=== PATIENT | female | born 1955 | race African-American/Black ===

== ENCOUNTER 2016-11-09 09:49 | Inpatient (IN) ==
[2016-11-09] MEDS ORDERED: LABETALOL IV ONE (10:37)
[2016-11-09] MEDS ORDERED: ASPIRIN PO STA (10:37)
[2016-11-09 10:50] LABS: MANUAL DIFF NEEDED? NO
[2016-11-09 10:52] LABS: BASO% 0.4 % (0.0-0.8); EOS# 0.11 X1000 (0.0-0.7); EOS% 1.2 % (0.0-10.0); HEMATOCRIT 43.2 % (37.0-47.0); HEMOGLOBIN 14.2 g/dL (12.0-16.0); IMM GRAN# 0.02 X1000 (0.0-0.04); IMM GRAN% 0.2 % (0.0-0.5); LYMPH# 1.97 X1000 (1.2-3.4); LYMPH% 21.6 % (20.5-51.1); MCH 29.5 PG (27-31); MCHC 32.9 g/dL (33-37); MCV 89.8 FL (81-99); MONO# 0.61 X1000 (0.11-0.59); MONO% 6.7 % (1.7-9.3); MPV 10.1 FL (7.4-10.4); NEUT% 69.9 % (42.2-75.2); PLT 319 X1000 (130-400); RBC 4.81 XMIL (4.2-5.4)
--- NOTE | 2016-11-09 10:55 | Diag Imaging Result Doc PS360 ---
CHEST-PORTABLE - 11/09/2016 INDICATION: CP TECHNIQUE: COMPARISON: 07/24/2014 FINDINGS: There is probably pulmonary vascular congestion. There are some ill-defined, central and bibasilar interstitial infiltrates or areas of atelectasis. Heart size is top normal. No pneumothorax or large effusion. IMPRESSION: Nonspecific findings. Bibasilar infiltrates or atelectasis. Pulmonary edema is not excluded. Electronically signed by Los Tavera 11/09/2016 10:52 AM
[2016-11-09] MEDS ORDERED: MORPHINE IV ONE (11:06)
[2016-11-09] MEDS ORDERED: ZOFRAN IV ONE (11:06)
[2016-11-09 11:08] LABS: INR 0.99; PROTIME 10.4 Seconds (9.2-11.7)
[2016-11-09 11:10] LABS: AGAP 10; ALBUMIN 3.6 g/dL (3.5-5.0); ALKALINE PHOSPHATASE 99 U/L (32-104); BUN 8 mg/dL (8-22); CALCIUM 9.2 mg/dL (8.8-10.2); CHLORIDE 102 mmol/L (98-107); CK PROFILE 153 U/L (24-173); COSMO 276; GOT 13 U/L (10-30); GPT 10 U/L (10-36); MAGNESIUM 2.1 mg/dL (1.5-2.7); SODIUM 139 mmol/L (136-145); TCO2 27 mmol/L (25-35); TOTAL BILIRUBIN 0.28 mg/dL (0.20-1.00); TOTAL PROTEIN 8.1 g/dL (6.3-8.3)
[2016-11-09] MEDS ORDERED: APRESOLINE IV ONE (11:20)
[2016-11-09 11:26] LABS: URINE MICRO REVIEW NEEDED? NO; URINE SOURCE CLEAN CATCH
[2016-11-09 11:35] LABS: BILIRUBIN URINE NEGATIVE (NEGATIVE); BLOOD URINE NEGATIVE (NEGATIVE); COLOR STRAW; GLUCOSE URINE NEGATIVE (NEGATIVE); LEUKOCYTES URINE SMALL (NEGATIVE); NITRITE URINE NEGATIVE (NEGATIVE); PH URINE 5.5; PROTEIN URINE NEGATIVE (NEGATIVE); SP GRAVITY URINE 1.002; TURBIDITY URINE CLEAR (CLEAR); UROBILINOGEN URINE NORMAL (NORMAL)
[2016-11-09 11:36] LABS: UR EPITHELIAL CELLS <10 /HPF (<10); URINE BACTERIA NEGATIVE /HPF; URINE CULTURE NEEDED? YES; URINE RBC <10 /HPF (<10)
[2016-11-09] MEDS ORDERED: ROCEPHIN 1 GM/NS 1 GM/50 ML IVPB IV ONE (11:49)
--- NOTE | 2016-11-09 12:27 | Diag Imaging Result Doc PS360 ---
EXAM: ABD/PELVIS/PULM ARTERIES HISTORY: CP with IL=408/120 TECHNIQUE: CT of the chest with intravenous contrast, CT of the abdomen and pelvis with intravenous contrast with dose reduction. COMMENT: Somewhat increased interstitial markings are generally present but there is no evidence of focal mass or consolidation in the lung parenchyma. The study is somewhat suboptimal due to the patient's body habitus and beam hardening artifact. There are no definite filling defects in the pulmonary arteries. There is calcification in the coronary arteries. There are no abnormal fluid collections. The aorta is not distended and there is no evidence of dissection. The visualized skeleton is unremarkable. ABDOMEN: There is calcification throughout the aorta and iliac arteries. There is no evidence of aneurysm. The spleen and adrenal glands are not enlarged. The pancreas is unremarkable. There are no gallstones. The liver is unremarkable. There is a small hiatal hernia. Kidneys are without evidence of hydronephrosis or mass. There is a ventral hernia above the level of the umbilicus. Actually there are two defects both of which contain small bowel loops. No evidence of dilatation of the small bowel is present. There is gas and stool in the colon. There is no evidence of significant adenopathy or abnormal fluid collections. CT of the pelvis: There is been hysterectomy. The urinary bladder is unremarkable. There is no evidence of free fluid masses or significant adenopathy. There are areas of sclerosis and vacuum phenomenon in the sacroiliac joints and severe facet arthropathy is present at L4-5 and L3-4. IMPRESSION: Ventral hernias. No evidence of acute disease in the chest. Electronically signed by Aren Childress 11/09/2016 12:24 PM
--- NOTE | 2016-11-09 12:33 | EKG Report ---
Test Performed on : 11/09/2016 09:57:46 AM Test Reason : cp Blood Pressure : / mmHG Vent. Rate : 106 BPM Atrial Rate : 106 BPM P-R Int : 160 ms QRS Dur : 080 ms QT Int : 344 ms P-R-T Axes : 041 029 055 degrees QTc Int : [address] elevation, probably due to early repolarization Nonspecific ST and T wave abnormality Abnormal ECG When compared with ECG of 07-MAY-2009 12:41, No significant change was found Unconfirmed Result
[2016-11-09] MEDS ORDERED: G.I. COCKTAIL PO ONE (13:14)
--- NOTE | 2016-11-09 13:40 | PROVIDER DOCUMENTATION ---
This chart was entered by Abril Hall Scribe, acting as scribe for Curt Urban MD. HPI-Chest Pain - General Chief Complaint: Chest Pain Stated Complaint: CP Time Seen by Provider: 11/09/16 10:20 Source: patient, family Allergies/Adverse Reactions: Patient Allergies Allergy/AdvReac Type Severity Reaction Status Date / Time No Known Allergies Allergy Verified 11/09/16 10:45 - History of Present Illness-CP Nature of Presenting Problem: 61 yo F presents to the ER with complaint of sudden onset of substernal CP this morning, woke her up from sleep. Pt denies any sort of cardiac history. Describes the pain as substernal, had radiation to her L arm, jaw, and head. Now states the pain is intermittent. Had some SOB associated, denies n/v. Has not taken BP medication x1 year. Location: reports: substernal Chest Pain Radiation: reports: jaw, arms Onset/Duration: 4-6 hours ago Timing: intermittent Context/Activities at Onset: reports: sleep Associated Symptoms: reports: shortness of breath. denies: nausea, vomiting Nitro Today/Relief: no nitro taken today Prior Chest Pain/Cardiac Workup: reports: no prior chest pain, no prior cardiac workup, non-cardiac. denies: stress test Similar Symptoms Previously?: No Review of Systems - Adult - REVIEW OF SYSTEMS - ADULT Constitutional: denies: chills, fever Eyes: reports: no symptoms reported Ears, Nose, Mouth & Throat: reports: no symptoms reported Cardiovascular: reports: chest pain. denies: palpitations Respiratory: reports: shortness of breath. denies: cough Gastrointestinal: denies: abdominal pain, diarrhea, nausea, vomiting Genitourinary: reports: no symptoms reported Musculoskeletal: reports: no symptoms reported Integumentary: reports: no symptoms reported Neurological: reports: no symptoms reported Psychiatric: reports: no symptoms reported Endocrine: reports: no symptoms reported Hematologic/Lymphatic: reports: no symptoms reported Allergic/Immunologic: reports: no symptoms reported All Other Systems: Reviewed and Negative Past History - Adult - PAST MEDICAL HISTORY-ADULT Review of Records: reports: Nursing Assessment Review, Medications Reviewed Cardiovascular: reports: HTN Endocrine/Immune: reports: Diabetes Diabetes controlled by:: PO Meds - IMMUNIZATION STATUS Childhood Immunizations: See Nurse Assessment Flu Vaccine: See Nurse Assessment Physical Exam-General - PHYSICAL EXAM-ADULT Initial Vital Signs Reviewed: Yes - CONSTITUTIONAL General Appearance: alert, no apparent distress - EYES Eyes: PERRL/EOMI, pink conjunctivae - HEAD, EARS, NOSE, MOUTH & THROAT HENMT: normocephalic/atraumatic, normal ENT inspection - NECK Neck: supple, normal inspection - RESPIRATORY Respiratory: no respiratory distress, no accessory muscle use - CARDIOVASCULAR Cardiovascular: normal peripheral pulses, tachycardia - GASTROINTESTINAL (ABDOMEN) Abdominal Exam: normal bowel sounds, non tender, soft - MUSCULOSKELETAL Back Exam: no CVA tenderness, no vertebral tenderness Extremity: normal range of motion, non-tender, normal gait, normal inspection - SKIN Integumentary: normal color, warm/dry - NEUROLOGIC Neurologic: grossly normal, no motor/sensory deficits - PSYCHIATRIC Psych/Mental Status: normal mood/affect, normal thought content, normal thought process, oriented x 3 Progress - PLAN OF CARE/RESULTS Progress/Plan/Lab Results: Vital Signs - 8 hr 11/09/16 09:57 11/09/16 11:00 11/09/16 12:30 Temperature 99.2 F Pulse Rate 103 H 95 H 96 H Respiratory Rate 22 22 30 H Blood Pressure 189/93 216/124 153/81 O2 Sat by Pulse Oximetry 97 93 L 93 L 11/09/16 13:00 Temperature Pulse Rate 99 H Respiratory Rate 31 H Blood Pressure 155/77 O2 Sat by Pulse Oximetry 29 L Laboratory Results - last 24 hr 11/09/16 11/09/16 11/09/16 10:35 10:35 10:35 WBC 9.12 RBC 4.81 Hgb 14.2 Hct 43.2 MCV 89.8 MCH 29.5 MCHC 32.9 L RDW Std Deviation 14.1 Plt Count 319 MPV 10.1 Immature Gran % (Auto) 0.2 Neut % (Auto) 69.9 Lymph % (Auto) 21.6 Otero % (Auto) 6.7 Eos % (Auto) 1.2 Baso % (Auto) 0.4 Immature Gran # (Auto) 0.02 Neut # (Auto) 6.37 Lymph # (Auto) 1.97 Otero # (Auto) 0.61 H Eos # (Auto) 0.11 Baso # (Auto) 0.04 PT INR Sodium 139 Potassium 5.0 Chloride 102 Carbon Dioxide 27 Anion Gap 10 BUN 8 Creatinine 0.7 Estimated GFR/1.73 m2 > 60 BUN/Creatinine Ratio 11 Glucose 102 Calculated Osmolality 276 Calcium 9.2 Magnesium 2.1 Total Bilirubin 0.28 AST 13 ALT 10 Alkaline Phosphatase 99 Creatine Kinase 153 Troponin T Zzc-G-Imqjvtawaqp Pept 298 H Total Protein 8.1 Albumin 3.6 Globulin 4.5 Albumin/Globulin Ratio 0.8 Urine Source Urine Color Urine Turbidity Urine pH Ur Specific [place] Urine Protein Ur Glucose (Stick) Ur Ketones (Stick) Urine Blood Urine Nitrite Urine Bilirubin Urobilinogen Dipstick Urine Leukocytes Urine WBC (Auto) Urine RBC (Auto) U Epithel Cells (Auto) Urine Bacteria (Auto) 11/09/16 11/09/16 11/09/16 10:35 10:35 10:35 WBC RBC Hgb Hct MCV MCH MCHC RDW Std Deviation Plt Count MPV Immature Gran % (Auto) Neut % (Auto) Lymph % (Auto) Otero % (Auto) Eos % (Auto) Baso % (Auto) Immature Gran # (Auto) Neut # (Auto) Lymph # (Auto) Otero # (Auto) Eos # (Auto) Baso # (Auto) PT 10.4 INR 0.99 Sodium Potassium Chloride Carbon Dioxide Anion Gap BUN Creatinine Estimated GFR/1.73 m2 BUN/Creatinine Ratio Glucose Calculated Osmolality Calcium Magnesium Total Bilirubin AST ALT Alkaline Phosphatase Creatine Kinase Troponin T < 0.010 Uka-Y-Fwqrqiupzjf Pept Total Protein Albumin Globulin Albumin/Globulin Ratio Urine Source CLEAN CATCH Urine Color STRAW Urine Turbidity CLEAR Urine pH 5.5 Ur Specific [place] 1.002 Urine Protein NEGATIVE Ur Glucose (Stick) NEGATIVE Ur Ketones (Stick) NEGATIVE Urine Blood NEGATIVE Urine Nitrite NEGATIVE Urine Bilirubin NEGATIVE Urobilinogen Dipstick NORMAL Urine Leukocytes SMALL A Urine WBC (Auto) 10-20 A Urine RBC (Auto) <10 U Epithel Cells (Auto) <10 Urine Bacteria (Auto) NEGATIVE Orders Category Date Time Status Cardiac Monitoring DIRECTED Care 11/09/16 10:37 Active Saline Loc NOW Care 11/09/16 10:37 Active ABD/PELVIS/PULM ARTERIES [CT] Stat Exams 11/09/16 11:06 Completed CHEST-PORTABLE [RAD] Stat Exams 11/09/16 10:37 Completed CBC WITH ELECTRONIC DIFF [HEME] Stat Lab 11/09/16 10:35 Completed CK PROFILE [SP CHEM] Stat Lab 11/09/16 10:35 Completed CK PROFILE [SP CHEM] Stat Lab 11/09/16 12:47 Uncollected COMPREHENSIVE METABOLIC PANEL [CHEM] Stat Lab 11/09/16 10:35 Completed MAGNESIUM [CHEM] Stat Lab 11/09/16 10:35 Completed PRO B-NATRIURETIC PEPTIDE Stat Lab 11/09/16 10:35 Completed PROTIME WITH INR [COAG] Stat Lab 11/09/16 10:35 Completed TROPONIN T Stat Lab 11/09/16 10:35 Completed TROPONIN T Stat Lab 11/09/16 12:47 Uncollected UA NIMS W/REFLEX CULT [URINALYSIS] Stat Lab 11/09/16 10:35 Completed URINE CULTURE [RM] Routine Lab 11/09/16 11:38 Received Aspirin Med 11/09/16 10:37 Discontinued 325 mg PO STAT STA CefTRIAXONE 1 GM/NS [Rocephin 1 gm/Ns] Med 11/09/16 11:49 Discontinued 1 gm in 50 ml IV NOW Hydralazine [Apresoline] Med 11/09/16 11:20 Discontinued 20 mg IV NOW ONE Labetalol Med 11/09/16 10:37 Discontinued 20 mg IV NOW ONE Lido/Cotton Alk/Al&mg Hydrox [G.i. Cocktail] Med 11/09/16 13:14 Discontinued 30 ml PO NOW ONE Morphine Med 11/09/16 11:06 Discontinued 4 mg IV NOW ONE Ondansetron [Zofran] Med 11/09/16 11:06 Discontinued 4 mg IV NOW ONE EKG [EKG] Stat Ther 11/09/16 10:04 Draft Result Diagrams: 11/09/16 10:35 11/09/16 10:35 - REASSESSMENT Reassessment #1 Time Reassessed: 11:08 Status: other (Pt was re-examined. IV Labetalol was just pushed, BP lowered to 196/110 form 240/120 and HR dropped to 90 from > 100. Pt still c/o her middle of the chest hurting. IV Morphine/Zofran given and CT-chest and A+P ordered to r /o dessection/PE etc.) Reassessment #2 Time Reassessed: 12:49 Status: improving (Pt's BP improved. Dr. Palomino, PCP came to ER in person and examined pt and reviewed all of the labs. Decided to d/c pt home after 2nd set of trop normal.) - EKG 1 Time of EKG reading by physician:: 09:57 EKG Read and Signed by:: Curt Urban Rate: 106 Rhythm: sinus tach QRS: normal VA Interval: normal ST Wave: non-specific ST changes Comments: ST elevation, probably due to early repolarization - CT/MRI 1 CT Study: Abdomen, Pelvis, other (pulmonary arteries) Impression: See EMR Report (ventral hernias. no evidence of acute disease in chest. per radiologist) - CONSULTS/PCP/HOSPITALIST Notification #1 *Consult/PCP/Hospitalist*: Dr. Hitesh Palomino Time Discussed: 13:39 Consult Disposition: Will see in ED, Admit Departure - Departure Date of Disposition Decision: 11/09/16 Time of Disposition Decision: 13:39 DIAGNOSIS: Chest pain, Hypertensive emergency Disposition: HOME 01 Certified Medical Emergency: Emergent Condition: Stable Referrals and Follow-Ups: Mark Palomino MD [Primary Care Provider] - - Critical Care Note This patient required my direct & personal management of CC.: No This chart was documented by the indicated scribe, (Abril Hall Scribe) and accurately reflects the services I performed and decisions made by me, Curt Urban MD, as attested by the provider's signature.
[2016-11-09] MEDS ORDERED: NORVASC PO SCH (14:47)
[2016-11-09] MEDS ORDERED: TOPROL XL PO ONE (14:47)
[2016-11-09] MEDS ORDERED: TYLENOL PO PRN (14:47)
[2016-11-09] MEDS ORDERED: SODIUM CHLORIDE 0.9% INJ PRN (14:47)
[2016-11-09] MEDS ORDERED: PHENERGAN IV PRN (14:47)
--- NOTE | 2016-11-09 15:19 | EKG Report ---
Test Performed on : 11/09/2016 1:31:05 PM Test Reason : ED. NOT ORDERED IN [place] Blood Pressure : / mmHG Vent. Rate : 094 BPM Atrial Rate : 094 BPM P-R Int : 128 ms QRS Dur : 090 ms QT Int : 416 ms P-R-T Axes : 039 047 060 degrees QTc Int : 520 ms Normal sinus rhythm. Prolonged QT Abnormal ECG When compared with ECG of 09-NOV-2016 09:57, (Unconfirmed) QT has lengthened Unconfirmed Result
[2016-11-09] MEDS: NITROGLYCERIN TOP SCH ×2 (15:26→20:09)
[2016-11-09] MEDS: NS 1,000 ML IV SCH (15:27)
[2016-11-09] MEDS: LOVENOX SUBQ SCH ×2 (16:03→20:09)
[2016-11-09] MEDS ORDERED: PNEUMOVAX 23 IM ONE (16:45)
--- NOTE | 2016-11-09 23:20 | HISTORY AND PHYSICAL ---
CHIEF COMPLAINT: Chest pain. HISTORY OF PRESENT ILLNESS: Ms. Micaela Colon is a 61-year-old lady with a history of essential hypertension, type 2 hqa-etlnjov-ttnvsiszg diabetes mellitus gastroesophageal reflux disease and mixed hyperlipidemia who is well known to me. I have not seen her in the office in nearly 2 years. She apparently lost her insurance and has been unable to afford any of her medicines. She presented to the ER complaining of severe incapacitating chest pain. She had severe chest pain localized to the left anterior chest with radiation to her neck and arm in association with shortness of breath. Her symptoms waxed and waned in intensity. Her EKG demonstrated sinus tachycardia with nonspecific T-wave changes. Her initial cardiac enzymes were negative. Her CPK was 153 and her troponin was less than 0.010. She was given intravenous morphine with some improvement in her chest pain. On arrival to the ER, her blood pressure was quite labile. Blood pressure was 216/124. She was given multiple medications in the ER, including labetalol and hydralazine to lower her blood pressure. When I saw her in the ER, her blood pressure had dropped to 155/75. She does have a history of type 2 fbx-whfqihq-irduelsiv diabetes mellitus. She had previously taken metformin. A random blood sugar was 102. She denies any polyuria, polydipsia or episodes of symptomatic hypoglycemia. She also has a longstanding history of gastroesophageal reflux disease. She was with complaint of increasing reflux, sour brash, and epigastric pain after meals tonight. She denied any dysphagia, melena or hematochezia. Dr. Urban ordered a CT scan pulmonary angiogram which demonstrated no evidence of pulmonary emboli or dissecting thoracic or abdominal aortic aneurysm. A CT scan of the abdomen and pelvis demonstrated a ventral hernia. PAST MEDICAL HISTORY: Essential hypertension. Type 2 izx-cvbozgh-gglwccmrp diabetes mellitus. Gastroesophageal reflux disease. Mixed hyperlipidemia. PAST SURGICAL HISTORY: Cystoscopy. ALLERGIES: ASHLEY inhibitors. Darvocet. MEDICATIONS: She is not currently taking any prescription medications at home. FAMILY HISTORY: Father at the age of 65 of an [place]. He had known ischemic heart disease. Her mother had hypertension and ischemic heart disease. SOCIAL HISTORY: She smokes half pack of cigarettes per day. She denies the use of alcoholic beverages. REVIEW OF SYSTEMS: General: She denies any recent weight gain or weight loss. HEENT: No loss of visual or auditory acuity. CARDIOVASCULAR: See HPI. Pulmonary: See HPI. GI: She has reflux, sour brash and epigastric discomfort after meals and at night. Endocrine: No polyuria, no polydipsia. Skin: No easy bruisability. Musculoskeletal: No joint pain. Neurologic: No migraines or seizures. Psychiatric: No history of depression. PHYSICAL EXAMINATION: GENERAL: This is a well-developed well-nourished 61-year-old lady in mild distress secondary to severe chest pain. VITAL SIGNS: Temperature 99.2 degrees, pulse 99, respiratory rate 31, blood pressure 155/77. HEENT: Fundi with arteriolar wall thickening. Pupils equal, round, reactive to light. Extraocular eye movements intact. TMs without bullae. NECK: Supple. No masses, JVD or bruits. CARDIOVASCULAR: Regular rate and rhythm. LUNGS: Faint crackles in the bases bilaterally. ABDOMEN: Soft, nontender, with active bowel sounds. No hepatosplenomegaly. No abdominal bruits. EXTREMITIES: Without edema. SKIN: No palpable purpura. BREAST//RECTAL: Deferred. NEUROLOGIC: Nonfocal. ASSESSMENT AND PLAN: 1. Unstable angina. I am going to admit the patient to [facility] for evaluation of the unstable angina. She has multiple risk factors for ischemic heart disease, including uncontrolled hypertension, diabetes, mixed hyperlipidemia and strong family history of ischemic heart disease. We will place her on a telemetry bed. I will treat her with aspirin 325 mg daily, topical nitrates, Lovenox 1 mg/kg subcutaneously b.i.d. and we will rule her out for myocardial ischemia by serial enzymes. If she rules out for myocardial ischemia by serial enzymes, we will proceed with a Myoview GXT as an outpatient in the morning. 2. Hypertension. Her blood pressure is too high. I am going to begin Toprol-XL 50 mg daily and also add amlodipine 5 mg daily. I would like to see her blood pressure in the 120s and 130s systolic, and her diastolic blood pressures in the range of 70-80. 3. History of mixed hyperlipidemia. I will check a fasting lipid profile and liver function test in the morning. Further recommendations will be made based upon those results. 4. Gastroesophageal reflux disease. I am going to begin pantoprazole 40 mg daily. 5. Type 2 acr-ieqfwpv-ozaqskgke diabetes mellitus. I will place her on pattern sugars, Humulin R sliding scale, and check a baseline hemoglobin A1c and microalbumin. Based on her clinical presentation and comorbid conditions, I believe that admission to [facility] for further evaluation of her underlying chest pain is warranted and reasonable. At this point in time, I anticipate that she will be in the hospital for at least 1 midnight and I will, therefore, place her in outpatient status with observation services. cc: Devin Palomino MD
[2016-11-10] MEDS: TYLENOL PO PRN ×2 (02:36→21:27)
[2016-11-10] MEDS: NITROGLYCERIN TOP SCH ×4 (02:36→21:28)
[2016-11-10] MEDS: NS 1,000 ML IV SCH ×3 (02:36→18:21)
[2016-11-10] MEDS: NORVASC PO SCH ×2 (09:04→09:12)
[2016-11-10] MEDS: ASPIRIN PO SCH (09:04)
[2016-11-10] MEDS: PROTONIX PO SCH (09:05)
[2016-11-10] MEDS: LOVENOX SUBQ SCH ×2 (09:05→21:27)
[2016-11-10 09:09] LABS: ALBUMIN 3.2 g/dL (3.5-5.0); ALKALINE PHOSPHATASE 86 U/L (32-104); GOT 10 U/L (10-30); GPT 8 U/L (10-36); LDL 82 mg/dL; TOTAL BILIRUBIN 0.66 mg/dL (0.20-1.00); TOTAL PROTEIN 6.6 g/dL (6.3-8.3); VLDL 16 mg/dL
[2016-11-10] MEDS: LEVAQUIN 750 MG/D5W 750 MG/150 ML IVPB IV SCH (09:14)
[2016-11-10 09:19] LABS: HEMOGLOBIN A1C 6.1 % (4.8-6.0)
--- NOTE | 2016-11-10 09:44 | Diag Imaging Result Doc PS360 ---
EXAM: CHEST-2 VIEWS HISTORY: COUGH TECHNIQUE: PA and lateral COMMENT: There is increasing interstitial opacity in both lung bases with atelectasis in the lingula and left costophrenic angle region and to some extent in the right costophrenic angle which were not present at the time the previous study of 11/09/2016. The heart size is larger than on 07/24/2014 and there is increased density in the right hilar region which may indicate adenopathy. IMPRESSION: 1. Interstitial pulmonary edema. 2. Patchy atelectasis bilaterally. Possibility of pneumonia cannot be excluded. 3. Possible right hilar adenopathy/mass. Electronically signed by Aren Childress 11/10/2016 9:42 AM
[2016-11-10] MEDS: DUONEB (A & A) INH SCH ×3 (09:58→20:10)
[2016-11-10 10:11] LABS: HDL 50 mg/dL (45-65); TRIGLYCERIDES 79 mg/dL (35-135)
--- NOTE | 2016-11-10 14:35 | Diag Imaging Result Document ---
PROCEDURE NAME: MYOCARDIAL PERF SCAN, STR/REST - 11/10/2016 INDICATION: Chest pain. PROCEDURES PERFORMED: 1. One-day stress rest myocardial perfusion imaging. 2. Angely protocol stress. PROCEDURE IN DETAIL: Ms. Colon was brought to the nuclear laboratory and had a resting study with injection of 15.1 mCi of technetium-99m sestamibi to usual imaging protocol utilized. Secondary to the patient having caffeine within the last 24 hours she was opted to be exercised via the standard Angely protocol. At peak exercise she was injected with 45.1 mCi of technetium- 99m sestamibi with usual imaging protocol utilized. FINDINGS: ANGELY PROTOCOL STRESS RESULTS: 1. Baseline EKG demonstrates sinus rhythm 103 beats per minute. 2. Patient exercised for only 2 minutes and 23 seconds achieving a peak heart rate of 133, this was 84% of her age predicted heart rate max. She achieved 4.6 mets and did not get out of stage I of the Angely protocol. Her exercise capacity was very low at 60% of age and sex predicted exercise capacity. 3. Appropriate blood pressure response to exercise. 4. Test was terminated due to fatigue and chest pain. 5. Patient had 9/10 chest pressure with moderate shortness of breath during the course of the study that resolved with rest. 6. There were no obvious ischemic related EKG changes or significant arrhythmias during the course of the study. 7. Alanis treadmill score of -5.5 indicating a moderate risk study. PERFUSION IMAGING RESULTS: 1. No evidence of abnormal extracardiac uptake. 2. TID ratio is normal at 1.08. 3. Perfusion imaging demonstrates what appears to be normal homogeneous uptake of radiotracer throughout the myocardial segments. 4. There is a normal ejection fraction of 73%. End-diastolic volume is 82, end-systolic volume 22. Normal wall motion is noted. IMPRESSION: 1. Extreme deconditioning with an exercise capacity of only 60%. 2. Moderate risk Alanis treadmill score given very poor exercise time as well as chest pain limiting her degree of activity. Notably, the patient only achieved 84% of predicted heart rate max so that does limit some predictiveness of the study. 3. Perfusion imaging that appears relatively normal with a normal ejection fraction. cc: MD Devin Shirley MD
--- NOTE | 2016-11-10 15:01 | PROGRESS NOTE ---
DATE: 11/10/2016 SUBJECTIVE: Ms. Colon was admitted to [facility] with wildly fluctuating blood pressure and chest pain. She is no longer having any episodes of chest pressure or chest tightness with radiation to her neck or arm. Cardiac enzymes are negative to this point in time. Her blood pressure is trending down. Systolic blood pressures have ranged from 109-124 whereas her diastolic blood pressures have ranged from 55-82. She is with complaint of a cough productive of greenish sputum, pleuritic chest pain worse with deep inspiration and paroxysms of cough and mild shortness of breath. She is maintaining O2 saturations of 90% to 93% on 4 L of O2. She does smoke a half pack of cigarettes per day. OBJECTIVE: Vital Signs: Temperature 99.1 degrees, pulse 92, respirations 20, BP 109/55. CV: Regular rate and rhythm without murmur. Lungs: Distant breath sounds with increased period of expiration. There is occasional end-expiratory wheezing with forced expiration. Abdomen: Soft, nontender, with active bowel sounds. Extremities: Without edema. ASSESSMENT AND PLAN: 1. Unstable angina. She has multiple risk factors for underlying ischemic heart disease, including hypertension, type 2 zue-ezhmeya-ydyiwulfx diabetes mellitus, mixed hyperlipidemia and a strong family history of ischemic heart disease. We will continue aspirin, topical nitrates, aggressive blood pressure control, and Lovenox as she has ruled out for myocardial ischemia by serial enzymes. We will proceed with a Persantine Myoview GXT with rest and stress images today. 2. Acute chronic obstructive pulmonary disease exacerbation complicated by tracheobronchitis. I am going to recheck a PA and lateral chest x-ray today. We will continue supplemental oxygen, add intravenous Levaquin and DuoNeb nebulizer treatments. She will need pulmonary function tests as an outpatient. 3. Hypertension. Her blood pressure looks much better. I am going to reduce the amlodipine to 2.5 mg daily. cc: Devin Palomino MD
--- NOTE | 2016-11-10 16:27 | Diag Imaging Result Doc PS360 ---
CT THORAX W/O CONTRAST - 11/10/2016 INDICATION: hypoxia, abnl cxr TECHNIQUE: A CT dose reduction protocol was used. COMPARISON: CT of the chest abdomen and pelvis with contrast done yesterday FINDINGS: Improved technique was possible on today's exam. There is cardiomegaly and a small pericardial effusion. There is mild diffuse mediastinal lymphadenopathy particularly precarinal and AP window lymph nodes. These are not very large however. There are trace pleural effusions. There is some smooth intralobular septal thickening and interstitial groundglass opacity in the lung bases suggesting pulmonary edema. There is also some coarse peripheral reticulation suggesting mild pulmonary fibrosis. The airways are clear. No substantial infiltrates. There is a small hiatal hernia. There are moderate degenerative changes of the spine. No acute or suspicious bony lesion. There is a lipoma in the lateral right breast. IMPRESSION: 1. Cardiomegaly. Small pericardial effusion. Mild to moderate calcified triple-vessel coronary artery disease. 2. Trace pleural effusions. 3. Probable mild interstitial pulmonary edema. 4. Mild pulmonary fibrosis. 5. Mild nonspecific, diffuse mediastinal adenopathy. Electronically signed by Los Tavera 11/10/2016 4:25 PM
--- NOTE | 2016-11-10 19:03 | PROGRESS NOTE ---
DATE: 11/10/2016 SUBJECTIVE: Mrs. Colon was admitted to [facility] for evaluation of labile hypertension and chest pain. She has ruled out for myocardial ischemia by serial enzymes. We proceeded with a Advestigoview GXT with rest and exercise images. She only was able to exercise for 2 minutes and 23 seconds. She never proceeded past stage I of the Jamil protocol and her exercise capacity was very low. She did not have any ischemic related EKG changes during the study. She did have chest pain while exercising. The perfusion studies demonstrated what appeared to be normal homogeneous uptake of Her blood pressure has stabilized. She was noted to have an O2 saturation of 84% on room air. Her chest x-ray showed pulmonary vascular congestion. OBJECTIVE: Vital signs: Pulse 101, respiratory rate 18, she is afebrile. CV: Regular rate and rhythm. Lungs: Faint crackles in the bases bilaterally. Abdomen: Soft, nontender, with active bowel sounds. ASSESSMENT AND PLAN: Chest pain. She has multiple risk factors for underlying ischemic heart disease. Her treadmill was equivocal. She had a moderate risk for heart disease based on the Alanis treadmill score. I have spoken at length to Mrs. Colon and her daughter, I am really concerned that she has underlying heart disease. I have spoken to Dr. Thom Roy who will see her in consultation for consideration of elective cardiac catheterization in the morning. Because of her persistent symptoms, I am going to change her status from outpatient with observation services to inpatient status. I anticipate that she will be in the hospital for at least 2 midnights discharging her today given the episodes of hypoxia and abnormal stress test would dramatically increase the risk for an adverse event such as sudden at home. I believe that hospitalization is necessary. cc: Devin Palomino MD
[2016-11-11] MEDS: NITROGLYCERIN TOP SCH ×4 (02:38→20:32)
[2016-11-11] MEDS: NS 1,000 ML IV SCH ×2 (02:42→06:00)
[2016-11-11] MEDS: DUONEB (A & A) INH SCH ×4 (03:10→20:00)
[2016-11-11] MEDS: LEVAQUIN 750 MG/D5W 750 MG/150 ML IVPB IV SCH (09:32)
[2016-11-11] MEDS: NORVASC PO SCH (09:33)
[2016-11-11] MEDS: LOVENOX SUBQ SCH ×2 (09:34→20:32)
[2016-11-11] MEDS: LASIX IV SCH (09:34)
[2016-11-11] MEDS: ASPIRIN PO SCH (09:35)
[2016-11-11] MEDS: PROTONIX PO SCH (09:35)
--- NOTE | 2016-11-11 11:25 | PROGRESS NOTE ---
DATE: 11/11/2016 SUBJECTIVE: Ms. Colon continues with intermittent episodes of chest tightness and pressure localized to the left anterior chest. There has been no radiation of pain to her neck and arm. A CT scan of the chest demonstrated a small pericardial effusion with mild to moderate calcified triple-vessel coronary artery disease. She had mild interstitial pulmonary edema and mild pulmonary fibrosis. Blood sugars are ranging from 107 to 126. She denies any polyuria, polydipsia, or episodes of symptomatic hypoglycemia. OBJECTIVE: Vital signs: Temperature 98.8 degrees, pulse 104, respirations 18, blood pressure 145/58. Her O2 saturation is 94% on 4L of O2. Cardiovascular: Regular rate and rhythm. Lungs: Faint crackles in the bases bilaterally. Abdomen: Soft, nontender, with active bowel sounds. Extremities: Without edema. ASSESSMENT AND PLAN: 1. Unstable angina. She has multiple risk factors for ischemic heart disease, including family history, tobacco abuse, essential hypertension, type 2 diabetes mellitus, and mixed hyperlipidemia. Her Myoview GXT was equivocal. CT scan of the thorax shows mild to moderate calcification of the coronary arteries. Dr. Roy has seen her in consultation and she will be undergoing an elective cardiac catheterization today. 2. Pulmonary edema. I suspect that she has some degree of congestive heart failure. We will continue a salt- and fluid-restricted diet, diurese her with Lasix, and check a 2D echocardiogram with color Doppler and spectral flow Doppler studies. cc: Devin Palomino MD
--- NOTE | 2016-11-11 12:34 | CONSULTATION ---
DATE OF CONSULTATION: 11/11/2016 REASON FOR CONSULTATION: Cardiology was consulted for angina equivalent. HISTORY OF PRESENT ILLNESS: Ms. Micaela Colon is a 61-year-old black lady with a history of hypertension, diabetes, gastroesophageal reflux disease. Had episode of chest discomfort which lasted for about 15-30 minutes, retrosternal, initially described as sharp and subsequently pressure-like, radiating to the left arm. She was subsequently set up for a stress test and admitted. Prior to this episode, over the last couple of weeks to at least a month or so, as she puts it, she has been having these episodes of retrosternal chest discomfort radiating to the arm which feels like a pressure-like sensation, not related to food, which she had not mentioned to Dr. Palomino. There is no palpitations significant. However, she has had some palpitations. There is no dizziness or syncope. She has had significant dyspnea on exertion. She was admitted and had a stress test done and had a very low exercise capacity with unremarkable myocardial perfusion scan. She also had a CT scan of her chest done which revealed mild interstitial edema with mild pulmonary fibrosis. REVIEW OF SYSTEMS: A 14-point review of systems was done.GI: There is no history of nausea, vomiting, diarrhea. There is no history of hematemesis or melena. Central nervous system: No focal weakness to suggest a CVA or TIA. Genitourinary: There is no dysuria or hematuria. Respiratory: There is no history of cough, expectoration, hemoptysis. There is no history of fevers or chills. Endocrine: Stable. PAST MEDICAL HISTORY: 1. Hypertension. 2. Diabetes. 3. Gastroesophageal reflux disease. 4. Dyslipidemia. 5. CT scan of her chest revealed coronary calcification with mild pulmonary edema during this hospitalization. ALLERGIES: ASHLEY inhibitors and Darvocet. SOCIAL HISTORY: She smokes half a pack of cigarettes a day. Denies alcohol abuse. FAMILY HISTORY: Father of a myocardial infarction at age of 65. PHYSICAL EXAMINATION: Vital Signs: Blood pressure was 155/77. Cardiovascular System: Normal jugular venous pressure. There is no thyromegaly. There is no carotid bruit. First and second heart sounds were heard. There is no S3 gallop. Respiratory System: Normal air entry. There are no crepitations or rhonchi. Abdomen: Soft, obese, nontender. There was no guarding or rigidity. Bowel sounds were heard. Central nervous system: Alert, oriented. Was moving all 4 extremities. Extremities: Examination of extremities revealed no pedal edema. HEENT: Atraumatic, normocephalic. Pupils were equal and reacting to light. LABORATORY EXAMINATION: Reveals sodium 130, potassium 5, BUN 8, creatinine 0.7. Cardiac enzymes were negative. ASSESSMENT AND PLAN: Ms. Colon is a 61-year-old black lady with history of hypertension, diabetes, gastroesophageal reflux disease. Has anginal symptoms. 1. The stress test had a very low exercise capacity with unremarkable myocardial perfusion scan. 2. CT scan revealed pulmonary edema, mild, associated with coronary calcification. 3. Given this, I have recommended that she undergo a left heart catheterization. She has unstable angina. 4. Diastolic heart failure on diuretics echo pending. She is allergic to ashley inhibitors 5. We will set her up for a left heart catheterization in the morning. In addition to her medications of aspirin and Lovenox, she is on amlodipine 2.5 mg a day. We will add beta-blockers to her medical regimen. She has had an echocardiogram done today. We will look at that. We will get lab work in the morning prior to the cardiac catheterization as well. I had a detailed discussion with the patient and her daughter as well. 6. Hypretension and Diabetes follow Dr palomino recommendation Thank you for the consult. We will follow hospital course. cc: MD Devin Whalen MD [facility]
[2016-11-11] MEDS: LOPRESSOR PO SCH (12:40)
[2016-11-11] MEDS ORDERED: KLOR-CON PO PRN ×3 (16:18)
[2016-11-11] MEDS ORDERED: DULCOLAX PR PRN (16:18)
[2016-11-11] MEDS ORDERED: RESTORIL PO PRN (16:18)
[2016-11-11] MEDS ORDERED: CEPACOL SORE THROAT LOZENGE MT PRN (16:18)
[2016-11-11] MEDS ORDERED: ZOFRAN IV PRN (16:18)
[2016-11-11] MEDS ORDERED: XANAX PO PRN (16:18)
[2016-11-11] MEDS ORDERED: MAGNESIUM SULFATE 2 GM in STERILE WATER INJ. 50 ML IV PRN ×4 (16:18)
[2016-11-11] MEDS ORDERED: MILK OF MAGNESIA PO PRN (16:18)
[2016-11-11] MEDS ORDERED: PERCOCET-5 PO PRN (16:18)
[2016-11-11] MEDS ORDERED: TYLENOL PO PRN (16:18)
[2016-11-11] MEDS ORDERED: MAGNESIUM SULFATE 3 GM in NS 100 ML IV PRN (16:18)
[2016-11-11] MEDS ORDERED: NITROGLYCERIN SL PRN (16:18)
--- NOTE | 2016-11-11 21:29 | ECHO REPORT ---
ORDER DATE: 11/11/2016 INTERPRETING PHYSICIAN: Dr. Wade REQUESTING PHYSICIAN: CLINICAL INDICATIONS: Pulmonary edema, hypertension, diabetes. M-MODE MEASUREMENTS: Right ventricle: 2.9 cm. Left ventricle end diastole: 4.4 cm. Left ventricle end systole: 2.5 cm. Posterior wall: 1.3 cm. Interventricular septum: 1.3 cm. Left atrium: 3.7 cm. Aortic root: 3.2 cm. SUMMARY OF 2-DIMENSIONAL IMAGING: The left ventricular function is normal. Ejection fraction 70%. Mild degree of concentric LVH. Right ventricle at upper limits of normal. Aortic valve opens normally. Color flow mapping unremarkable. There is some degree of thickening of the cusp without stenosis. The mitral annulus shows marked calcification. Color flow mapping of the mitral valve indicates a mild degree of regurgitation. The patient has tachycardia. Pulse wave Doppler of mitral inflow shows relatively normal E/A ratio. Tissue Doppler of septal and lateral mitral annulus averages 7-8 cm per second. There is no definite diastolic dysfunction. The inferior vena cava is mildly enlarged. The tricuspid valve shows a mild degree of regurgitation. Pulmonary pressure estimated at 39 mmHg. The pulmonic valve looks normal with a mild degree of regurgitation. Trivial/trace pericardial effusion appears to be present. No evidence of masses or thrombus. Clinical correlation recommended. cc: MD Devin Rios MD
[2016-11-12] MEDS: NITROGLYCERIN TOP SCH ×2 (02:50→08:36)
[2016-11-12] MEDS: DUONEB (A & A) INH SCH ×2 (03:20→08:16)
[2016-11-12 05:42] LABS: HEMATOCRIT 41.6 % (37.0-47.0); HEMOGLOBIN 13.4 g/dL (12.0-16.0); MCH 29.3 PG (27-31); MCHC 32.2 g/dL (33-37); MPV 10.2 FL (7.4-10.4); RBC 4.57 XMIL (4.2-5.4)
[2016-11-12 05:50] LABS: INR 1.02; PROTIME 10.7 Seconds (9.2-11.7)
[2016-11-12 06:01] LABS: AGAP 12; BUN 13 mg/dL (8-22); CALCIUM 9.2 mg/dL (8.8-10.2); CHLORIDE 99 mmol/L (98-107); COSMO 274; MAGNESIUM 2.1 mg/dL (1.5-2.7); SODIUM 137 mmol/L (136-145); TCO2 26 mmol/L (25-35)
--- NOTE | 2016-11-12 06:35 | EKG Report ---
Test Performed on : 11/12/2016 05:47:27 AM Test Reason : chest pain Blood Pressure : / mmHG Vent. Rate : 094 BPM Atrial Rate : 094 BPM P-R Int : 146 ms QRS Dur : 090 ms QT Int : 368 ms P-R-T Axes : 031 030 048 degrees QTc Int : 460 ms Normal sinus rhythm. Possible Acute pericarditis Abnormal ECG When compared with ECG of 09-NOV-2016 13:31, (Unconfirmed) QT has shortened Confirmed by Devin Palomino MD ([id number]) on 11/12/2016 12:51:29 PM
[2016-11-12] MEDS: LEVAQUIN 750 MG/D5W 750 MG/150 ML IVPB IV SCH (08:02)
[2016-11-12] MEDS: LASIX IV SCH ×2 (08:05→08:36)
[2016-11-12] MEDS: NORVASC PO SCH (08:05)
[2016-11-12] MEDS: LOPRESSOR PO SCH (08:06)
[2016-11-12] MEDS: ASPIRIN PO SCH (08:37)
[2016-11-12] MEDS: PROTONIX PO SCH (08:37)
[2016-11-12] MEDS ORDERED: HEPARIN 1000 UNITS/NS 2,000 UNIT/1,000 ML IV.SOLN ONE (08:38)
[2016-11-12] MEDS ORDERED: VERSED ONE (08:55)
[2016-11-12] MEDS ORDERED: NS 1,000 ML ONE (08:55)
[2016-11-12] MEDS ORDERED: MORPHINE ONE (08:55)
[2016-11-12] MEDS ORDERED: ANESTHESIA PB SET 88 IN 5742 ONE (08:55)
[2016-11-12] MEDS ORDERED: APRESOLINE ONE (09:33)
[2016-11-12] MEDS ORDERED: LABETALOL ONE (09:51)
[2016-11-12] MEDS ORDERED: MAALOX PLUS LIQUID PO PRN (11:15)
[2016-11-12] MEDS ORDERED: NS 1,000 ML IV SCH (12:00)
[2016-11-12] MEDS ORDERED: HYZAAR 50/12.5 MG PO SCH (12:30)
--- NOTE | 2016-11-12 13:54 | EKG Report ---
Test Performed on : 11/12/2016 11:13:09 AM Test Reason : post cath Blood Pressure : / mmHG Vent. Rate : 083 BPM Atrial Rate : 083 BPM P-R Int : 172 ms QRS Dur : 104 ms QT Int : 412 ms P-R-T Axes : 045 042 044 degrees QTc Int : 484 ms Normal sinus rhythm. Acute pericarditis Abnormal ECG When compared with ECG of 12-NOV-2016 05:47, (Unconfirmed) No significant change was found Confirmed by Devin Palomino MD ([id number]) on 11/13/2016 1:09:32 PM
--- NOTE | 2016-11-12 15:24 | PROGRESS NOTE ---
DATE: 11/12/2016 SUBJECTIVE: Ms. Micaela Colon was admitted to [facility] for evaluation of labile hypertension and chest pain. She ruled out for myocardial ischemia by serial enzymes. A Myoview GXT was equivocal. She underwent a cardiac catheterization today that demonstrated a 40% lesion in the RCA and a 30% proximal LAD lesion. She is breathing more comfortably. O2 saturations are ranging from 92% to 95% on 2L of O2 per nasal cannula. She was noted to be in flash pulmonary edema on admission, and we have been diuresing her aggressively. Her echocardiogram was grossly normal. She had normal LV function with an EF of 70%. She did have concentric left ventricular hypertrophy. She had a mild degree of mitral regurgitation. Blood pressure is still fluctuating. OBJECTIVE: Vital Signs: Blood pressure 155/86, pulse 91, respirations 20. Cardiovascular: Regular rate and rhythm. No murmur noted. Lungs: Clear. Abdomen: Soft, nontender, with active bowel sounds. ASSESSMENT AND PLAN: 1. Unstable angina with nonobstructing ischemic heart disease. 2. Essential hypertension. 3. Flash pulmonary edema. Clinically, she continues to improve. I suspect that her labile hypertension precipitated both the chest pain as well as flash pulmonary edema. We will continue a salt- and fluid-restricted diet, and diurese her with Lasix 40 mg daily. We will continue metoprolol 50 mg daily and add lisinopril 10 mg daily for her blood pressure. Hopefully, the use of the ASHLEY inhibitor will slow down and reverse the LVH. We will check a room air O2 saturation and stop her oxygen if the O2 saturation is greater than 90%. We will check a portable chest x-ray today. cc: Devin Palomino MD
[2016-11-12 17:00] VITALS: BP 160/78
[2016-11-13] MEDS ORDERED: PRINIVIL PO SCH (09:00)
--- NOTE | 2016-11-13 15:49 | DISCHARGE SUMMARY ---
ADMISSION DATE: 11/09/2016 DISCHARGE DATE: 11/12/2016 DISCHARGE DIAGNOSES: 1. Accelerated essential hypertension. 2. Unstable angina in the setting of nonobstructive ischemic heart disease. 3. Type 2 [id number] diabetes mellitus uncomplicated and controlled. 4. Mixed hyperlipidemia. DISCHARGE INSTRUCTIONS: 1. Return to clinic in 1 week to see me, Dr. Hitesh Palomino, in anticipation of a transition of care visit. 2. Activity as tolerated. 3. 1800 calorie ADA diet. 4. Medications. Aspirin 325 mg daily, lisinopril 10 mg daily, metoprolol 50 mg daily. 5. Flash pulmonary edema. PHYSICAL EXAMINATION: General: This is a well-nourished, well-developed pleasant 61-year-old lady in no apparent distress. Vital signs: She is afebrile, pulse 84, respiratory rate 17, BP 125/65. CV: Regular rate and rhythm without murmur. Lungs: Clear. Abdomen: Soft, nontender with active bowel sounds. Extremities: Without edema. HOSPITAL COURSE: Mrs. Micaela Colon is a 61-year-old lady with a history of hypertension, type 2 [id number]-qdeiewclf diabetes mellitus and mixed hyperlipidemia. She lost her insurance and has not been able to purchase medications. I have not seen her in clinic in nearly 2 years. She presented to the ER complaining of chest pain. She described the chest pain as severe tightness localized to the left anterior chest with radiation to her neck and arm in association with shortness of breath. Her initial EKG demonstrated sinus tachycardia with nonspecific T-wave changes. Her initial cardiac enzymes were normal. On arrival to the ER her blood pressure was quite labile. Blood pressure was 216/124. She was given labetalol and hydralazine and her blood pressure dropped to 155/75. We initially admitted her overnight with outpatient status with observation services. We treated her with aspirin, topical nitrates and Lovenox 1 mg/kg subcu b.i.d. She ruled out for myocardial ischemia by serial enzymes. We arranged for a Myoview GXT. She had no obvious perfusion abnormalities. She had a moderate risk Alanis treadmill score given very poor exercise time as well as chest pain limiting her degree of activity. Because of her multiple risk for underlying ischemic heart disease, I consulted Dr. Thom Roy. Dr. Berman performed a cardiac catherization which demonstrated nonobstructive lesions of th RCA and LAD in the 30 to 40 % range. On admission to the hospital she was with complaint of significant shortness of breath. Her initial chest x-ray demonstrated bibasilar infiltrates, atelectasis and interstitial edema. The patient was placed on a salt and fluid restricted diet and was aggressively diuresed. We began supplemental O2. She diuresed well and the pulmonary edema resolved. Following her catheterization this afternoon she was weaned off oxygen and was maintaining O2 saturations of 95- 98% on room air. Her lung sandoval were clear by auscultation. We did perform an echocardiogram which demonstrated normal left ventricular function with an ejection fraction of 70%. She had mild degree of concentric left ventricular hypertrophy. There was no diastolic dysfunction. There were no significant valvular abnormalities. We felt that her flash pulmonary edema was secondary to the accelerated hypertension. She does have a longstanding history of hypertension. She had been off medications. We added metoprolol 50 mg daily as well as lisinopril 10 mg daily given the LVH. Her blood pressure was in the range of 135-150 systolically whereas her diastolic blood pressures were in the 70s and 80s. She has a history of type 2 [id number]-xlqgehyqg diabetes mellitus. She has been trying to control her blood sugars with diet alone. Her hemoglobin A1c was 6.1. We will continue a low carbohydrate diet. I asked her to check her sugars once daily. I will make sure that she has an annual eye exam. She has a history of mixed hyperlipidemia. She was previously on statins. We repeated a lipid profile which demonstrated a total cholesterol of 148, triglycerides 79, HDL 50 and an LDL of 82. We did not feel that a statin was indicated at this time. Having reached maximum hospital benefit, the patient was discharged in stable condition. cc: Devin Palomino MD [facility]
--- NOTE | 2016-11-15 17:03 | CARDIAC CATH REPORT ---
PROCEDURE NAME: - PROCEDURE PERFORMED: Right heart catheterization with selective coronary angiography and left ventriculography. INDICATIONS: Acute on chronic congestive heart failure, chest discomfort suspicious for angina, and abnormal ECG in setting of multiple risk factors for coronary disease including longstanding hypertension, diabetes mellitus and chronic cigarette use. ENTRY SITE: Right femoral artery. CATHETERS USED: 5-Maltese JL4, 3DRC, and angled pigtail. TECHNIQUE: After intravenous sedation with Versed and morphine, local anesthesia with lidocaine was applied over right femoral artery. Arterial access was established with placement of a 5- Maltese sheath in right femoral artery using modified Seldinger technique. Selective coronary angiography was performed followed by left heart catheterization and left ventriculography. During the course of procedure the patient was administered intravenous hydralazine 10 mg x2 doses and intravenous labetalol 10 mg x1 dose because of significant hypertension. Upon completion of procedure, arterial sheath was removed from right femoral artery and hemostasis facilitated with manual pressure. Patient tolerated the procedure without apparent complications. FINDINGS: Hemodynamics: Aortic pressure 166/69 with a mean of 81, left ventricular pressure 165 over EDP of 12. Comments on hemodynamics. There is no significant gradient across aortic valve demonstrated on pullback from the left ventricle. Left ventricular end-diastolic pressure is normal following recent diuresis with intravenous Lasix. ANGIOGRAPHY: 1. Left ventriculogram. The left ventricle is of normal size without wall motion abnormality evident on BASILIO projection. Estimated left ejection fraction is approximately 70%. There is no significant mitral regurgitation. 2. Left main coronary. Left main coronary artery is free of significant coronary stenosis. 3. Left anterior descending coronary. Left anterior descending coronary demonstrates calcification in the proximal one-third of the vessel. The proximal left anterior descending coronary demonstrates a focal mild (30%) smooth narrowing. The remainder of the left anterior descending coronary artery and its branches are free of significant coronary stenosis. 4. Left circumflex coronary artery. The left circumflex coronary artery demonstrates a mild (20- 30%) smooth proximal stenosis in obtuse marginal. Remainder of left circumflex coronary and its branches are free of significant coronary stenosis. 5. Right coronary. The dominant right coronary artery demonstrates a mild (40%) focal stenosis proximally. Remainder of right coronary is free of significant coronary stenosis. CONCLUSIONS: 1. Systemic arterial hypertension. 2. Normal left ventricular end-diastolic pressure following recent diuresis with intravenous Lasix. Left ventricular diastolic dysfunction suspected in light of patient's normal left ventricular ejection fraction. 3. Normal left ventricular ejection fraction without wall motion abnormality evident. 4. Right-dominant coronary anatomy is described with mild coronary atherosclerosis. RECOMMENDATIONS: 1. Medical management of patient's coronary atherosclerosis. 2. Manage for left ventricular diastolic dysfunction. 3. Coronary risk factor modification and smoking cessation. cc: MD Devin Vargas MD
== END 2016-11-12 18:45 | disposition home or self-care (01) ==
LOC: ED 09:49 → 4N 09:49 → OBSVTOIN 14:03 → 3S 11-12 10:39
PROVIDERS: ADMIT Internal Medicine; ATTEND Internal Medicine